=== PATIENT | female | born 1990 | race Two or more races ===

== ENCOUNTER 2025-09-25 14:32 | Outpatient (AMB) | payer MEDICAID, SELFPAY ==
[2025-09-25 14:41] VITALS: BP 123/85; PULSE 74; RESP 18; TEMP 36.4; O2SAT 98; BMI 29.8
--- NOTE | 2025-09-25 14:41 | GSCOFFNT_ITS ---
[facility] - [facility] 09/25/25 14:41 Height 1.55 m Height Method Measured Weight 71.668 kg Weight Measurement Method Standing Scale BMI 29.8 BP 123/85 H Blood Pressure Source Automatic Cuff Blood Pressure Location Left Upper Arm Position Sitting Respiration 18 Pulse 74 Pulse Source Monitor Temp 97.5 F Temp Source Temporal Artery Scan Pulse Oximetry (%) 98 Oxygen Delivery Method Room Air Med/Allergies Allergies & Medications Allergies No Known Allergies Allergy (Verified 09/25/25 14:43) Medication Reconciliation No Known Home Medications 09/25/25 [History Confirmed 09/25/25] MA Intake Visit Data Collection New Patient or Established: Established Patient (seen at [facility] within 3 years) Seen by Clinical Staff ONLY (RN/MA): No Reason for Visit:: REFERRAL GALLSTONES Pain Present Currently: Yes Pain Location: Abdomen Pain scale:: 6 Pain Scale Used: Lindsay-Hdz/Numerical Rn Cardiovascular Icu Required: Yes PCP or OBGYN visit in last 3 months: Yes Hx Now: No Do You Feel Safe at Home: Yes Authorities Contacted: N/A Smoking Status Smoking Status: Never smoker Immunization / Flu Flu Vaccine in the Last 12 Months: Yes Flu Vaccine Exclusion Criteria: Already Received Past Medical History Surgical History OTHER SURGICAL HX: Other surgical history: Uncomplicated appendectomy in 2017 Social History SMOKING STATUS: Smoking status: Never smoker HPI HPI Narrative Rhonda Sheldon is a pleasant 35 yo female with no past medical history presenting to the clinic for evaluation of cholelithiasis diagnosed via ultrasound. She has been having progressing epigastric discomfort with referred pain to the left flank for the past two months. This pain is worsened with eating meats and drinking coffee and self resolves between 30 to 60 minutes. There is associated nausea without vomiting or diarrhea. She has tried ibuprofen and tylenol for pain mitigation with varying results. She rates the pain at an 8/10 at the worst. She has also been having constipation for the past 5 months, which she attributes to giving to her third child at the time of onset. ROS Review of Systems Systems Reviewed: All systems reviewed, normal except as documented Objective/Exam General Limitations: no limitations General Appearance: alert, in no apparent distress and well groomed Abdominal Abdominal exam: Present soft, normal bowel sounds and scar (RLQ from appendectomy); Absent guarding Abdominal tenderness: Present LUQ, LLQ and mild Results US done at [facility] 08/21/25: cholelithiasis Assessment & Plan Diagnosis / Problem List (1) Symptomatic cholelithiasis: Status: Acute Assessment & Plan: 35F presenting with signs and symptoms of biliary colic. I explained that surgery is recommended due to the high likelihood of persistent symptoms and explained benefits/risk including need for conversion to open, bleeding, infection, injury to nearby structures requiring further procedures which could mean major biliary reconstruction at a tertiary hospital, as well as postoperative hernia and diarrhea. All questions were answered and patient is agreeable to proceeding Office Procedures GNS Level of Care Nursing/Assessment Patient Status: Established Patient Nursing Assessment/Reassesment: Medication Reconciliation, Update PMH in EMR and Vital Signs Coordination of Care: Complex Care and Chronic Disease 1-5, Education Complex Pt/Fam, Consent,records obtained, informed consent, Results/Orders obtained and Staff clarify orders Special Needs: Language special needs Established Patient Charge Established Patient Point Assignment: 95 Established Patient Point Charge: EP Level 3 (80-115) Patient Portal Questionaires Social History Tobacco History Smoking Status: Never smoker Domestic Abuse History Do You Feel Safe at Home: Yes Review of Systems Report any current symptoms Only answer those that you have currently: Past Medical History Past Medical History Have you ever been diagnosed with any of the following:
== END 2025-09-25 15:33 | disposition home or self-care (01) ==
LOC: HODSRG 14:32
PROVIDERS: PCP Family Medicine; Referring Provider Family Medicine; Supervising Provider Surgery; Visit Provider Surgery
DX: K80.20 Calculus of gallbladder without cholecystitis without obstruction (principal)
CPT/HCPCS: 99213; G0463

== ENCOUNTER 2025-10-16 13:44 | Outpatient (AMB) | payer MEDICAID, SELFPAY ==
[2025-10-16 13:59] VITALS: BP 106/72; PULSE 66; RESP 18; TEMP 36.2; O2SAT 98; BMI 29.6
--- NOTE | 2025-10-16 13:59 | GSCOFFNT_ITS ---
Vital Signs - [facility] 10/16/25 13:59 Height 1.55 m Height Method Measured Weight 71.242 kg Weight Measurement Method Standing Scale BMI 29.6 BP 106/72 Blood Pressure Source Automatic Cuff Blood Pressure Location Left Upper Arm Position Sitting Respiration 18 Pulse 66 Pulse Source Monitor Temp 97.2 F Temp Source Temporal Artery Scan Pulse Oximetry (%) 98 Oxygen Delivery Method Room Air Med/Allergies Allergies & Medications Allergies No Known Allergies Allergy (Verified 10/16/25 14:00) Medication Reconciliation No Known Home Medications 09/25/25 [History Confirmed 10/16/25] MA Intake Visit Data Collection New Patient or Established: Established Patient (seen at [facility] within 3 years) Seen by Clinical Staff ONLY (RN/MA): No Pain Present Currently: No Pain Scale Used: Lindsay-Hdz/Numerical Online Community Manager Required: Yes PCP or OBGYN visit in last 3 months: Yes Hx Now: No Do You Feel Safe at Home: Yes Authorities Contacted: N/A Smoking Status Smoking Status: Never smoker Immunization / Flu Flu Vaccine in the Last 12 Months: Yes Flu Vaccine Exclusion Criteria: Already Received Past Medical History Social History SMOKING STATUS: Smoking status: Never smoker HPI HPI Narrative Spoke to pt with in-person conference interpreter 35F with symptomatic cholelithiasis here for a preop appt. Pt reports feeling well overall, she has had some episodes of pain since her last visit but has been able to manage it. She denies any changes to her health otherwise ROS Review of Systems Systems Reviewed: All systems reviewed, normal except as documented Objective/Exam General General Appearance: alert, cooperative and well groomed Resp Respiratory exam: Absent respiratory distress Abdominal Abdominal exam: Present soft; Absent distention or tenderness Assessment & Plan Diagnosis / Problem List (1) Symptomatic cholelithiasis: Status: Acute Assessment & Plan: 35F presenting with signs and symptoms of biliary colic. I explained that surgery is recommended due to the high likelihood of persistent symptoms and explained benefits/risk including need for conversion to open, bleeding, infection, injury to nearby structures requiring further procedures which could mean major biliary reconstruction at a tertiary hospital, as well as postoperati ve hernia and diarrhea. All questions were answered and patient is agreeable to proceeding Plan: Pt requested to check A1c before surgery as well as she had gestational diabetes Office Procedures GNS Level of Care Nursing/Assessment Patient Status: Established Patient Nursing Assessment/Reassesment: Medication Reconciliation, Update PMH in EMR and Vital Signs Coordination of Care: Complex Care and Chronic Disease 1-5, Education Complex Pt/Fam, Consent,records obtained, informed consent, Results/Orders obtained and Staff clarify orders Special Needs: Language special needs Established Patient Charge Established Patient Point Assignment: 95 Established Patient Point Charge: EP Level 3 (80-115) Patient Portal Questionaires Social History Tobacco History Smoking Status: Never smoker Domestic Abuse History Do You Feel Safe at Home: Yes Review of Systems Report any current symptoms Only answer those that you have currently: Past Medical History Past Medical History Have you ever been diagnosed with any of the following:
== END 2025-10-16 14:24 | disposition home or self-care (01) ==
PROVIDERS: PCP Family Medicine; Referring Provider Family Medicine; Supervising Provider Surgery; Visit Provider Surgery
DX: K80.20 Calculus of gallbladder without cholecystitis without obstruction (principal)
CPT/HCPCS: 99213; G0463

== ENCOUNTER 2025-11-01 05:50 | Day surgery (SDC) | payer MEDICAID, SELFPAY ==
[2025-10-31 08:32] VITALS: BMI 29.2
[2025-10-31 10:20] LABS: Basophils # (Auto) 0.1 Thou/mm3 (0.0-0.2); Basophils % (Auto) 1 % (0-2.5); Eosinophils # (Auto) 0.7 Thou/mm3 (0.0-0.5); Eosinophils % (Auto) 9 % (0-10); Hematocrit 39.7 % (36.0-46.0); Hemoglobin 13.7 g/dL (12.0-16.0); Immature Granulocytes Auto 0.03 Thou/mm3 (0.00-0.00); Lymphocytes # (Auto) 2.5 Thou/mm3 (1.0-4.8); Lymphocytes % (Auto) 30 % (10-50); Mean Corpuscular HGB Conc 34.5 g/dl (31.0-37.0); Mean Corpuscular Hemoglobin 31.1 pg (25.0-35.0); Mean Corpuscular Volume 90 fL (80-100); Monocytes # (Auto) 0.6 Thou/mm3 (0.0-0.8); Monocytes % (Auto) 7 % (0-12); Neutrophils # (Auto) 4.4 Thou/mm3 (1.8-7.7); Neutrophils % (Auto) 53 % (37-80); Nucleated Red Blood Cell # 0.00 Thou/mm3 (0.00-0.00); Nucleated Red Blood Cell % 0 /100 WBC (0); Platelet Count 328 Thou/mm3 (140-440); RDW Standard Deviation 38.1 fL (36.4-46.3); Red Blood Count 4.40 Miln/mm3 (4.00-5.20); White Blood Count 8.4 Thou/mm3 (3.6-11.0)
[2025-10-31 10:28] LABS: INR 1.1 (0.9-1.3); Partial Thromboplastin Time 27.6 Seconds (22.0-36.0); Prothrombin Time 11.6 Seconds (9.0-12.2)
[2025-10-31 10:32] LABS: Anion Gap 10 (7-16); BUN/Creatinine Ratio 14 Ratio (12-20); Blood Urea Nitrogen 11 mg/dL (9-23); Calcium 9.7 mg/dL (8.3-10.6); Carbon Dioxide 26.5 mMol/L (20.0-31.0); Chloride 105 mMol/L (98-107); Creatinine (Component) 0.8 mg/dL (0.6-1.3); Estimated Creatinine Clearance 88.0 mL/min (>60); Glucose 91 mg/dL (74-106); Osmolality,Calculated 280 (275-295); Potassium 4.0 mMol/L (3.4-5.1); Sodium 141 mMol/L (136-145); eGFR > 60 See Note
[2025-10-31 10:44] LABS: HCG,Qualitative Serum Negative
[2025-11-01] VITALS (9 sets, daily range): BP systolic 113–136; BP diastolic 78–96; PULSE 60–82; RESP 12–20; TEMP 36.2–37; O2SAT 98–100; BMI 29.2
--- NOTE | 2025-11-01 08:35 | ESOP_ITS ---
Date of Procedure 11/01/25 Pre Op Diagnosis Symptomatic cholelithiasis Post Op Diagnosis Same Procedure Laparoscopic cholecystectomy Findings Distended gallbladder Procedure Description After discussion of risks and benefits, patient was brought to the operating room, SCDs were placed and general anesthesia was induced. She received preope rative antibiotics and was prepped and draped in the usual sterile fashion. After timeout a supraumbilical incision was made with a #15 blade and the skin was elevated with towel clamps. A Veress needle was placed through the incision and proper positioning was confirmed with a drop test. The abdomen was insufflated to 12 mmHg at which point the Veress was exchanged for a 5 mm camera using a Visiport technique. There were no signs of injury from the point of entry. 3 additional ports were placed under direct vision, one 12 mm at the epigastrium, one 5 mm right subcostal and one 5 mm right anterior axillary line. Patient was placed in reverse Trendelenburg. The fundus of the gallbladder was grasped and retracted cephalad and the infundibulum was grasped and retracted laterally. The lower third of the gallbladder was removed from the gallbladder bed using electrocautery and the hepatocystic triangle was cleared of all fat and fibrous tissue using blunt dissection. The critical view of safety was achieved showing 2 and only 2 structures entering the gallbladder. The cystic duct and cystic artery were clipped and transected in the usual fashion. The gallbladder was removed from the gallbladder bed using electrocautery. Hemostasis of the gallbladder bed was achieved using electrocautery. The specimen was removed in an Endo Catch bag via the epigastric port and the epiga stric fascia was closed with 0 Vicryl suture using a Brad-Nacho. Counts were confirmed correct. Pneumoperitoneum was released and ports were removed under direct vision. Incisions were irrigated and infiltrated with half percent Marcaine for a total of 30 cc. Incisions were closed with 4-0 Monocryl and reinforced with Dermabond. Patient was extubated and brought to PACU in stable condition Pathology / specimen Other (Gallbladder) Estimated Blood Loss 25 Surgeon Juany Sosa MD Surgical Staff Operation Date: 11/01/25 07:30 Case Staff Anesthesiologist: Carlos Alberto Barrett RN First Assistant: Lynette Stevenson
--- NOTE | 2025-11-01 08:38 | PD.SURDS ---
Planned Discharge Date 11/01/25 DS: Providers Provider Primary care physician: Jose Guadalupe Grande MD Attending Provider on Admission: Juany Sosa MD Attending Provider on DC: Juany Sosa MD Discharging Provider: Juany Sosa MD Diagnosis Discharge Diagnosis (1) Symptomatic cholelithiasis: Status: Acute Problem List Completed Was Problem List Reviewed/Reconciled?: Yes Exam Vital Signs Temp Pulse Resp BP Pulse Ox 97.2 F 60 18 117/82 100 11/01/25 06:00 11/01/25 06:00 11/01/25 06:00 11/01/25 06:00 11/01/25 06:00 Discharge Plan Plan Patient Disposition: HOME (Self Care) Prescriptions/Referrals Prescriptions/Med Rec: New oxycodone-acetaminophen [Percocet] 5-325 mg tablet 1 tab PO Q6H MDD 4 tabs PRN (Reason: pain) Qty: 10 0RF Rx Instructions: Take 1 tablet as needed every 6 hours for moderate to severe pain Referrals: Juany Sosa MD [Physician, General Surgery] Jose Guadalupe Grande MD [Primary Care Provider] Patient/Caregiver Discharge Instructions Other Discharge Activity Instructions:: You may resume showering in 2 days, on 11/03 It is okay to get incisions wet at that time, pat dry after Avoid bathing or swimming for 2 weeks You can gradually resume your regular diet, but for the first couple of weeks avoid fatty or greasy foods as these may cause pain and/or diarrhea During the surgery we fill your abdomen with a air in order to see the structures. Some of this air tends to linger and cause pain that is referred to the shoulder as well as pain with deep breaths. This will get better with time. Being out of bed and walking helps the air to absorb faster If you develop worsening pain, nausea/vomiting, fever or signs of jaundice please seek care in ER For any nonemergent concerns please feel free to call the office at [phone] during business hours M?F 8 to 4 PM, except 12 to 1 PM Education Materials: After Gallbladder Surgery, Preventing Surgical Site Infections Print Language: Faroese Stand Alone Forms: [employer] Award Info., Patient Portal Info Letter Discharge Order Discharge Orders: Discharge (Routine); Ordered 11/01/25 Ordered By: Juany Sosa Results Results: Laboratory Laboratory results: results reviewed PROCEDURES: Procedure Date 11/01/25 Procedures Laparoscopic cholecystectomy
--- NOTE | 2025-11-01 08:43 | SUR.PHASEI ---
0843: Pt. arrived with oral airway in place, vitals stable, breathing unlabored, no signs of distress, x4 dermabond sites to ABD CDI, no active bleed noted, report received from Escobar HADDAD and MD Barrett.
[2025-11-01] MEDS: fentaNYL CIT INJ 50 mCg/ML AMP 2ML 25 MCG IVP ×4 (09:07→09:24)
--- NOTE | 2025-11-01 10:14 | SUR.PHASEII ---
1014: Pt. AAOx4, vitals stable, breathing unlabored, no complaint of pain or nausea, x4 dermabond sites to ABD CDI, no active bleed noted, pt. tolerated sips of water well, pt. ambulated to wheelchair with steady gait and no assist, no complications. Gave discharge instructions to the pt. and her ride using a full time staff interpreter, both verbalized understanding and had no further questions. Pt. left with all personal belongings.
== END 2025-11-01 10:14 | disposition home or self-care (01) ==
PROVIDERS: Anesthesiology; PCP Family Medicine; Referring Provider Surgery; Visit Provider Surgery
PROC: 0FT44ZZ Resection of Gallbladder, Percutaneous Endoscopic Approach (ICD-10-PCS; CPT 47562; principal; 2025-11-01 07:30)
DX: K80.10 Calculus of gallbladder with chronic cholecystitis without obstruction (principal)
CPT/HCPCS: 47562; 36415; 80048; 84703; 85025; 85610; 85730; A4217; A4649; J0131; J0694; J1100; J2250; J2405; J2704; J3010; J3490; A9270

== ENCOUNTER 2025-11-13 08:48 | Outpatient (AMB) | payer MEDICAID, SELFPAY ==
[2025-11-13 09:16] VITALS: BP 110/77; PULSE 73; RESP 16; TEMP 36; O2SAT 98; BMI 27.4
--- NOTE | 2025-11-13 09:16 | GSCOFFNT_ITS ---
Vital Signs - [facility] 11/13/25 09:16 Height 1.55 m Height Method Measured Weight 65.913 kg Weight Measurement Method Standing Scale BMI 27.4 BP 110/77 Blood Pressure Source Automatic Cuff Blood Pressure Location Right Upper Arm Position Sitting Respiration 16 Pulse 73 Pulse Source Monitor Temp 96.8 F Temp Source Temporal Artery Scan Pulse Oximetry (%) 98 Oxygen Delivery Method Room Air Med/Allergies Allergies & Medications Allergies No Known Allergies Allergy (Verified 11/13/25 09:20) Medication Reconciliation oxycodone-acetaminophen 5 mg-325 mg tablet (Percocet) 1 tab PO Q6H PRN pain #10 tabs 11/01/25 [Rx Confirmed 11/13/25] MA Intake Visit Data Collection New Patient or Established: Established Patient (seen at [facility] within 3 years) Seen by Clinical Staff ONLY (RN/MA): No Reason for Visit:: POST OP CHOLECYSTECTOMY Pain Present Currently: No Pain Scale Used: Lindsay-Hdz/Numerical Warehouse Operations Associate Required: Yes PCP or OBGYN visit in last 3 months: Yes Hx Now: No Do You Feel Safe at Home: Yes Authorities Contacted: N/A Smoking Status Smoking Status: Never smoker Immunization / Flu Flu Vaccine in the Last 12 Months: Yes Flu Vaccine Exclusion Criteria: Already Received Past Medical History Past Medical History NEUROLOGIC: Negative Neurological Disorders or Seizures CARDIAC: Negative Cardiac Disorders or Congestive Heart Failure RESPIRATORY: Negative Chronic Obstructive Pulmonary Disease (COPD) GASTROINTESTINAL: Positive Gastrointestinal Disorders and Gall Bladder Disease; Negative Hepatitis GENITOURINARY: Positive Genitourinary Disorders (cyst in the kidney); Negative Renal Disease REPRODUCTIVE: Positive Gonorrhea (left arm nexplanon) and Previous Pregnancies; Negative Endometriosis, Genital Herpes, Pelvic Inflammatory Disease, Syphilis or Uterine Prolapse ENDOCRINE: Negative Endocrine Disorders, Diabetes Mellitus Type 1 or Diabetes Mellitus Type 2 HEMATOLOGIC: Negative Blood Disorders OTHER HISTORY: Negative Hospitalization, Autoimmune Disease, Shingles, Blood Transfusions, Blood Transfusion Reaction, Anesthesia Reactions, Clostridium Difficile or Cancer Family History FAMILY HISTORY: Positive Family Cardiac Disorders and Family Surgery; Negative Family Psychiatric Problems, Family Respiratory Disorders, Family Gastrointestinal Problems, Family Cancer or Family Anesthesia Reaction Surgical History SURGICAL: Positive Abdominal Surgery Social History SMOKING STATUS: Smoking status: Never smoker ALCOHOL: Alcohol Intake: Never HOUSING: Housing: Apartment HPI HPI Narrative Spoke to pt with in-person staff electronic warfare officer 35F who presented with symptomatic cholelithiasis s/p lap ra 11/01/25 here for planned follow up. Pt reports she went to the ER on POD 3 for pain and constipation, she was given medication which helped on both fronts and is overall feeling better. She is still taking the prescribed pain medication (sounds like percocet or norco) and still feels constipated, having a BM every 3 days or so. Otherwise she feels well with no nausea and no fever, tolerating diet well ROS Review of Systems Systems Reviewed: All systems reviewed, normal except as documented Objective/Exam General General Appearance: alert, cooperative and well groomed Resp Respiratory exam: Absent respiratory distress Abdominal Abdominal exam: Present soft and incision (c/d/i, no erythema, no fluctuance or tenderness); Absent distention or tenderness Results Pathology of gallbladder reviewed Assessment & Plan Diagnosis / Problem List (1) Symptomatic cholelithiasis: Status: Acute Assessment & Plan: 35F who presented with symptomatic cholelithiasis s/p maycol ra 11/01/25 here for planned follow up, recovering well overall. I explained that her constipation is likely related to the use of prescription pain medication which she should wean as tolerated. I provided return precautions and all questions were answered Plan: Follow up as needed Office Procedures GNS Level of Care Nursing/Assessment Patient Status: Established Patient Nursing Assessment/Reassesment: Medication Reconciliation, Update PMH in EMR and Vital Signs Coordination of Care: Complex Care and Chronic Disease 1-5, Education Complex Pt/Fam, Consent,records obtained, informed consent, Results/Orders obtained and Staff clarify orders Special Needs: Language special needs Established Patient Charge Established Patient Point Assignment: 95 Established Patient Point Charge: EP Level 3 (80-115) Patient Portal Questionaires Social History Living Situation History Housing: Apartment Tobacco History Smoking Status: Never smoker Alcohol History Alcohol Intake: Never Domestic Abuse History Do You Feel Safe at Home: Yes Review of Systems Report any current symptoms Only answer those that you have currently: Past Medical History Past Medical History Have you ever been diagnosed with any of the following: Neurological Problems Seizures: No Cardiology Problems Congestive Heart Failure: No Respiratory Problems Chronic Obstructive Pulmonary Disease (COPD): No Stomache/Intestinal Problems Hepatitis: No Gall Bladder Disease: Yes Genital/Urinary Problems Renal Disease: No Reproductive Problems Endometriosis: No Genital Herpes: No Gonorrhea: Yes (left arm nexplanon) Pelvic Inflammatory Disease: No Previous Pregnancies: Yes Syphilis: No Uterine Prolapse: No Endocrine Problems Diabetes Mellitus Type 1: No Diabetes Mellitus Type 2: No Other Problems Hospitalization: No Autoimmune Disease: No Shingles: No Blood Transfusions: No Blood Transfusion Reaction: No Anesthesia Reactions: No Clostridium Difficile: No Cancer: No
== END 2025-11-13 09:49 | disposition home or self-care (01) ==
PROVIDERS: PCP Family Medicine; Referring Provider Family Medicine; Supervising Provider Surgery; Visit Provider Surgery
DX: K80.20 Calculus of gallbladder without cholecystitis without obstruction (principal)
CPT/HCPCS: 99213; G0463